=== PATIENT | female | born 1990 | race Caucasian/White ===

== ENCOUNTER 2017-10-09 05:49 | Inpatient (IN) ==
[2017-10-09] MEDS ORDERED: Naloxone 0.4 MG/ML INJ IVP PRN ×2 (06:07→07:44)
[2017-10-09] MEDS ORDERED: Metoclopramide 10 MG/2 ML VIAL IVP PRN ×2 (06:07→09:58)
[2017-10-09] MEDS ORDERED: Famotidine 20 MG/2 ML VIAL IVP PRN (06:07)
[2017-10-09] MEDS ORDERED: Ringers Solution, Lactated 1,000 ML IVC ONE (06:09)
[2017-10-09] MEDS ORDERED: Ringers Solution, Lactated 1,000 ML IVC SCH ×2 (06:15→10:00)
[2017-10-09 06:25] LABS: Basophils % 0.3 %; Eosinophils # 0.2 K/mcL (0.0-0.6); Eosinophils % 1.1 %; Hematocrit 39.1 % (35.3-44.9); Hemoglobin 13.2 g/dL (11.5-15.4); Immature Granulocytes % 0.7 % (0-4); Lymphocytes # 2.2 K/mcL (0.6-4.6); Lymphocytes % 16.6 %; Mean Corpuscular HGB Conc 33.8 g/dL (31.6-35.5); Mean Corpuscular Hemoglobin 30.8 pg (28.0-33.3); Mean Corpuscular Volume 91.4 fL (83.0-100.0); Mean Platelet Volume 12.4 fL (9.4-12.4); Monocytes # 0.6 K/mcL (0.0-1.3); Monocytes % 4.6 %; Neutrophils # 10.3 K/mcL (1.6-8.9); Platelet Count 143 K/mcL (140-400); Red Blood Count 4.28 M/mcL (3.82-4.97); Red Cell Distribution Width 13.9 % (11.5-14.5); Segmented Neutrophils % 76.7 %
--- NOTE | 2017-10-09 06:34 | OB/GYN History & Physical ---
Date of Encounter: 10/09/17 Time of Encounter: 06:30 Assessment and Plan (1) with 39 completed weeks gestation Current visit: Yes Status: Acute (2) Previous section complicating Current visit: Yes Status: Acute Patient will be scheduled for repeat low transverse uterine section with bilateral partial salpingectomy by Dr. Chavez (3) Intrauterine growth restriction (IUGR) affecting care of mother, third trimester, single gestation Current visit: Yes Status: Acute (4) Family planning advice Current visit: Yes Status: Acute History of Present Illness Chief complaint: Labor evaluation HPI: Ms. Hernández is a 26 year old female at 39 weeks +3 days presents to labor and delivery for repeat with bilateral tubal ligation. She follows Dr. Chavez for care. Patient has a history 2 previous sections and does not want to have any more babies. Patient's has been complicated by intrauterine growth restriction. She has signed tubal papers. The risks and benefit of tubal ligation was explained to patient with a failure rate of 5-8 per thousand with increased risk of ectopic if was to occur. She denies headaches, vision disturbances, chest pain, SOB, f/c/n/v, dysuria. Blood Type: O+ GBS: negative Hep B: Nonreactive HIV Ig: Nonreactive T Pallidum: negative Rubella IgG: Positive Varizella IgG: Positive Past Med Surg Social Fam HX - Past Medical History Medical history: no medical history Psychiatric history: no psych history - Past Surgical History Surgical History: other - Social History Smoking Status: Current every day smoker Packs per day: 1 pack a day Smokeless Tobacco Status: No Alcohol use: none Drug use: none - Family History Mother History Unknown: Yes Obstetrical History - Pregnancies : 3 Para: 2 Medications and Allergies Vit #108/Iron/FA [ One Tablet] 1 tab PO DAILY 10/09/17 [History ] 3 Allergy/AdvReac Type Severity Reaction Status Date / Time No Known Allergies Allergy Verified 10/09/17 06:06 Review of System OB - Constitutional Constitutional ROS IM: as per HPI - Nose, mouth, and throat Nose, mouth and throat: as per HPI - Cardiovascular Cardiovascular: as per HPI - Respiratory Respiratory: as per HPI - Genitourinary Genitourinary: no dysuria, no vaginal discharge Exam - Constitutional Constitutional: well developed, well nourished, no acute distress, average body habitus - HEENT HEENT: Normocephaly, Mucus Membranes Moist - Neck Neck exam: full ROM - Lungs Respiratory exam: CTAB - Cardiovascular Cardiovascular exam: RRR, +S1, +S2 - Abdomen Abdomen: Present: bowel sounds normal - Extremities Deep Tendon Reflex Grade: 2+ Normal - Uterus Uterus exam: Present: normal size, normal contour Results Result Diagrams: 10/09/17 06:19 All other labs normal.
[2017-10-09 06:41] LABS: Amphetamine Screen,Urine Negative ng/mL (Cutoff=1000); Barbiturate Screen,Urine Negative ng/mL (Cutoff=200); Benzodiazepines Screen,Urine Negative ng/mL (Cutoff=200); Cannabinoid Screen,Urine Negative ng/mL (Cutoff = 50); Cocaine Screen,Urine Negative ng/mL (Cutoff= 300); Opiate Screen,Urine Negative ng/mL (Cutoff=300); Phencyclidine Screen,Urine Negative ng/mL (Cutoff=25)
--- NOTE | 2017-10-09 07:24 | Anesthesia Evaluation PreOp ---
Date of Encounter: 10/09/17 Time of Encounter: 07:22 - Past History Planned Operation: scheduled csection, spinal Cardiac History: Denies any Significant Hx Pulmonary History: Smoker (1ppd/10yrs) [employer] History: Denies Any Significant HX Other Medical History: Denies Any Significant HX Anesthesia History: No Prior Anesthetic Complications, Past Anesthesia ( previous csections x 2) : Yes Alcohol Use: none Drug use: none Medications and Allergies Vit #108/Iron/FA [ One Tablet] 1 tab PO DAILY 10/09/17 [History ] 3 Allergy/AdvReac Type Severity Reaction Status Date / Time No Known Allergies Allergy Verified 10/09/17 06:06 - Meds/Allergy Pre-op Review Medications Reviewed: Yes Allergies Reviewed: Yes Beta Blockers on Current Med List: No Anesthesia Results - Labs 10/09/17 06:19 Anesthesia Exam BP 131/82 P 90 R 16 T 97.9 Height: 5'3" Weight: 84.5kg NPO (# of Hours): 9 Pain Scale: 0 Pain Scale Used: Numeric (1 - 10) - HEENT Pupil (Motor): Pupils equal Mallampati: II Teeth: Poor dentition (chipped teeth throughout) - [employer] LOC: Oriented [employer] Motor: Normal RUE, Normal LUE, Normal RLE, Normal LLE, Normal Face [employer] Sensory: Normal: RUE, LUE, RLE, LLE, Face - Cardiac Rhythm: Regular Murmur: None JVD: No Carotid Bruit: No - Pulmonary Breath Sounds: bilateral Clear Respiratory Effort: Symmetrical Anesthesia Assess/Plan ASA Score: 2 Modified [place] Scale for Level of Consciousness: Cooperative, oriented, and tranquil Anesthetic Plan: Regional Autologous Blood: No Monitoring Plan: Standard Monitors Recovery Plan: PACU
[2017-10-09] MEDS ORDERED: Morphine Sulfate/PF 5mg/10mL Vial ONE (07:42)
[2017-10-09] MEDS ORDERED: Ondansetron 4 MG/2 ML VIAL IVP ONE (07:44)
[2017-10-09] MEDS ORDERED: *HR* Meperidine 25 MG/ML SYRINGE IVP PRN (07:44)
[2017-10-09] MEDS ORDERED: *HR* OxyCODONE/APAP 5/325 TABLET PO PRN (07:44)
[2017-10-09] MEDS ORDERED: *HR* Promethazine 25 MG/ML VIAL IVP PRN (07:44)
[2017-10-09] MEDS ORDERED: MORPHINE SUL Oral CONC 10 MG/0.5 ML ORAL.SYG SL PRN (07:44)
[2017-10-09] MEDS ORDERED: *HR* Phenylephrine 10 MG/ML VIAL ONE (08:29)
[2017-10-09] MEDS ORDERED: Dexamethasone 4 MG/ML VIAL ONE (08:30)
[2017-10-09] MEDS ORDERED: Ondansetron 4 MG/2 ML VIAL ONE (08:30)
[2017-10-09] MEDS ORDERED: EPHEDrine 50 MG/ML VIAL ONE (08:31)
--- NOTE | 2017-10-09 08:40 | Anesthesia Procedures ---
Date of Encounter: 10/09/17 Time of Encounter: 08:17 Procedures: Anesthesia - Epidural/Spinal Patient ID/Chart reviewed: Yes Patient examined: Yes OB Eval: Gestational age: 39 OB Eval: : 3 OB Eval: Hx Para: 2 OB Eval: Contractions: Non-stressed pattern Consent Obtained: Yes Supplemental Oxygen: None/Room Air Site Prep: Aseptic Technique, Sterile prep and drape, Povidone-Iodine 1% Patient position: upright Local Anesthetic: Lidocaine 1% Amount of Local Anesthetic used: 3 Interspace Used: L3-L4 Loss of Resistance (KUMAR): No Blood: No CSF: Yes Paresthesia: No Spinal Needle Gauge: 25 Spinal Dose: Bupivicaine 0.75% 1.6ml morph 250mcg Procedure: Intrathecal dose administered 1st pass in upright position without any immediate noted complications. VSS throughout. Supine for csection procedure. Vitals + FHT's: See anesthesia record
[2017-10-09] MEDS ORDERED: *HR* Oxytocin 10 UNIT/ML VIAL IM ONE (08:58)
--- NOTE | 2017-10-09 09:49 | OB/GYN Procedure Note ---
Section - Date of procedure: 10/09/17 Preop diagnosis: desires repeat , desires sterilization Post-op diagnosis: same Procedure: repeat low transverse, bilateral tubal ligation Surgeon: Irene Chavez Estimated blood loss (cc): 500 Was there an retail event and sales assistant present: Yes Parachute/Combatant Diver Officer: Padma Haney Anesthesia Type: Spinal section complications: none Disposition: L&D Recovery Room Specimens: Placenta, Cord blood, Right tube segment, Left tube segment - Narrative Narrative: Problem list: 1. h/o 2 repeat cesareans section 2. IUGR 3. Smoker 4. 39+3 weeks Indications: 26 y/o presents to L&D for a scheduled . She has a history of 2 prior c-sections. course was complicated by IUGR. Procedure: Patient was brought to the operating room with satisfactory spinal anesthesia. The abdomen was prepped and draped in a sterile fashion. A Pfannenstiel incision was made and carried sharply down to the level of fascia. The fascia was incised transversely. The fascia was dissected away from the underlying rectus muscles. With sharp and blunt dissection, the rectus muscles were divided in the midline. The peritoneum was entered bluntly. A transverse incision was made across the bladder peritoneum. The bladder was dissected away from the underlying lower uterine segment. Bladder retractor was placed to protect the bladder. The lower uterine segment was entered sharply with a scalpel. Incision was manually extended. Amniotic sac was ruptured and clear fluid was encountered. The infant's head was pulled up and delivered easily as were the shoulders and body. The mouth and oropharynx were suctioned. The cord was clamped and cut. The infant was passed off to the waiting nurse in satisfactory condition. APGARS 8/9, weight 2595g(5lbs 12oz). Placenta was extracted completely and found to be intact. Uterus was explored and found to be empty. Uterus was delivered through the abdominal incision and massaged vigorously. Intravenous Pitocin was administered. The margins of the uterine incision were closed primarily with a running locking stitch of 0 Vicryl with adequate hemostasis. Secondary running locking stitch was placed for extra strength to the wound. At this point, attention was diverted to the patient's tubes, a [place] clamp grasped the isthmic portion of each tube and approximately 1-cm knuckle on either side was tied off with two lengths of 0 plain catgut. Intervening knuckle was excised and passed off the field. The proximal end of the tubal mucosa was cauterized. Cul-de-sac and gutters were suctioned vigorously. The uterus was returned to its proper anatomic position in the abdomen. The fascia was closed with a simple running stitch of 0 vicryl. 3-0 vicryl was used to close the subcutaneous tissue. The skin was closed with running subcuticular of 4-0 vicryl. Uterus was expressed of its contents. Patient was brought to the recovery room in satisfactory condition. There were no complications. There was 500 cc of blood loss. All sponge, needle, and instrument counts were reported to be correct.
[2017-10-09] MEDS ORDERED: Simethicone 80 MG TAB.CHEW PO PRN (09:58)
[2017-10-09] MEDS ORDERED: Sennosides 8.6 MG TABLET PO PRN (09:58)
[2017-10-09] MEDS ORDERED: Ondansetron 4 MG/2 ML VIAL IVP PRN (09:58)
[2017-10-09] MEDS ORDERED: Oxytocin 20 units/ LR 1000 mL 20 UNIT/1,000 ML BAG IVC SCH (10:00)
--- NOTE | 2017-10-09 11:36 | Anesthesia Evaluation Post Op ---
Date of Encounter: 10/09/17 Time of Encounter: 11:34 - Vital Signs Vital Signs: BP 106/56 P 73 R 16 T 98.2 - Lungs Lungs: Clear Ascult./Percussion - Airway Airway: Non-obstructed - Cardiovascular Regular Rate - Mental Status Mental Status: Alert & Oriented, Answers Appropriately - Pain Pain Scale: 0 Pain Scale used: Numeric (1 - 10) - Nausea Vomiting Nausea Vomiting: Not Present - Hydration Hydration: NPO, Galan catheter Notes: 10/09/17 11:35 spinal level decreasing, pt able to move feet. No complaints of discomfort - Discharge PostOp Status: Transfer Patient to floor
[2017-10-09] MEDS: Ibuprofen 600 MG TABLET PO PRN (17:02)
[2017-10-10] MEDS: Ibuprofen 600 MG TABLET PO PRN (04:08)
[2017-10-10 04:49] LABS: Basophils % 0.2 %; Eosinophils # 0.1 K/mcL (0.0-0.6); Eosinophils % 0.9 %; Hematocrit 32.1 % (35.3-44.9); Hemoglobin 10.7 g/dL (11.5-15.4); Immature Granulocytes % 0.5 % (0-4); Lymphocytes # 2.6 K/mcL (0.6-4.6); Lymphocytes % 20.1 %; Mean Corpuscular HGB Conc 33.3 g/dL (31.6-35.5); Mean Corpuscular Hemoglobin 30.7 pg (28.0-33.3); Mean Corpuscular Volume 92.2 fL (83.0-100.0); Mean Platelet Volume 12.6 fL (9.4-12.4); Monocytes # 0.6 K/mcL (0.0-1.3); Monocytes % 4.8 %; Neutrophils # 9.5 K/mcL (1.6-8.9); Platelet Count 136 K/mcL (140-400); Red Blood Count 3.48 M/mcL (3.82-4.97); Red Cell Distribution Width 13.9 % (11.5-14.5); Segmented Neutrophils % 73.5 %
[2017-10-10] MEDS: Prenatal Vit/FA 1 EACH TABLET PO SCH (07:54)
--- NOTE | 2017-10-10 09:53 | OB/GYN Progress Note ---
Date of Encounter: 10/10/17 Time of Encounter: 09:51 - Assessment and Plan (1) Status post delivery Current Visit: Yes Status: Acute Stable POD #1 Continue current management plan Anticipate discharge tomorrow Subjective - Subjective Interval history: Pain well-managed on by mouth pain medication, tolerating by mouth diet, voiding without difficulty, and flatus Patient reports: appetite normal, voiding normally, pain well controlled, ambulating normally [place]: doing well Objective - Vital Signs Latest vital signs: Vital Signs Temp Pulse Resp BP Pulse Ox 10/10/17 07:45 98.1 F 86 16 108/72 97 10/10/17 04:05 97.7 F 73 16 105/68 99 10/10/17 00:00 97.9 F 77 16 114/75 98 10/09/17 19:30 99.1 F 62 14 126/64 97 10/09/17 16:32 99.4 F 60 16 139/70 100 10/09/17 14:45 97.6 F 59 16 129/78 100 10/09/17 14:06 97.8 F 69 18 116/68 100 10/09/17 13:15 97.8 F 72 16 121/74 100 10/09/17 12:15 97.6 F 69 14 121/76 97 Intake and Output 10/09/17 10/10/17 10/10/17 23:59 07:59 15:59 Intake Total 360 / 360 720 / 720 Output Total 850 / 850 1200 / 1200 Balance -490 / -490 -480 / -480 Intake: Oral 360 / 360 720 / 720 Output: Urine 400 / 400 Catheter 850 / 850 800 / 800 Other: Weight 79.379 kg Patient Weight 10/10/17 23:59 Weight 79.379 kg - Exam Lungs: bilateral: normal Chest: Normal S1, Normal S2 Extremities: Present: normal Abdomen: Present: normal appearance, soft Incision: Present: dressed (No drainage) Uterus: Present: normal, firm Comments: Fundus firm at umbilicus - Labs Labs: Laboratory Results - last 24 hr 10/10/17 04:20 WBC 12.9 H RBC 3.48 L Hgb 10.7 L D Hct 32.1 L MCV 92.2 MCH 30.7 MCHC 33.3 RDW 13.9 Plt Count 136 L MPV 12.6 H Immature Gran % 0.5 Seg Neutrophils % 73.5 Lymphocytes % 20.1 Monocytes % 4.8 Eosinophils % 0.9 Basophils % 0.2 Neutrophils # 9.5 H Lymphocytes # 2.6 Monocytes # 0.6 Eosinophils # 0.1 Basophils # 0.0
[2017-10-10] MEDS: *HR* OxyCODONE/APAP 5/325 TABLET PO PRN ×3 (11:41→21:09)
[2017-10-11] MEDS: *HR* OxyCODONE/APAP 5/325 TABLET PO PRN (07:12)
--- NOTE | 2017-10-11 08:53 | Discharge Summary ---
Date of Encounter: 10/11/17 Time of Encounter: 08:49 - Discharge Diagnosis (1) anemia Priority: Secondary Status: Acute Comments: Continue iron daily (2) with 39 completed weeks gestation Priority: Secondary Status: Acute (3) Status post delivery Priority: Primary Status: Acute Comments: POD no. 2 Pt reports pain well controlled with PO pain meds Tolerating regular diet Voiding independently Passing flatus and has had BM NITZA dressing in place Lochia light Ready for discharge to guest today - Discharge Medications Prescriptions: OxyCODONE/APAP 5/325 [Percocet 5/325 MG] 1 each PO Q4HR PRN 5 Days #30 tablet PRN Reason: Moderate pain 4-6 Ibuprofen [Motrin] 600 mg PO Q6HR PRN #30 tablet PRN Reason: Cramping Docusate [Colace] 100 mg PO BID #60 capsule Ferrous Sulfate 325 mg PO DAILY #30 tablet Home Medications: Vit #108/Iron/FA [ One Tablet] 1 tab PO DAILY 10/09/17 [History ] Docusate [Colace] 100 mg PO BID #60 capsule 10/11/17 [Rx] Ferrous Sulfate 325 mg PO DAILY #30 tablet 10/11/17 [Rx] Ibuprofen [Motrin] 600 mg PO Q6HR PRN #30 tablet 10/11/17 [Rx] OxyCODONE/APAP 5/325 [Percocet 5/325 MG] 1 each PO Q4HR PRN 5 Days #30 tablet [Rx] Simethicone [Gas-X] 80 mg PO TID PRN tab.chew 10/11/17 [Rx] Allergies/Adverse Reactions: 3 Allergy/AdvReac Type Severity Reaction Status Date / Time No Known Allergies Allergy Verified 10/09/17 06:06 Data Procedures and tests throughout hospitalization: Laboratory Tests 10/09/17 10/09/17 10/10/17 06:19 06:26 04:20 WBC 13.4 H 12.9 H RBC 4.28 3.48 L Hgb 13.2 10.7 L D Hct 39.1 32.1 L MCV 91.4 92.2 MCH 30.8 30.7 MCHC 33.8 33.3 RDW 13.9 13.9 Plt Count 143 136 L MPV 12.4 12.6 H Immature Gran % 0.7 0.5 Seg Neutrophils % 76.7 73.5 Lymphocytes % 16.6 20.1 Monocytes % 4.6 4.8 Eosinophils % 1.1 0.9 Basophils % 0.3 0.2 Neutrophils # 10.3 H 9.5 H Lymphocytes # 2.2 2.6 Monocytes # 0.6 0.6 Eosinophils # 0.2 0.1 Basophils # 0.0 0.0 Urine Opiates Screen Negative Ur Barbiturates Screen Negative Ur Phencyclidine Scrn Negative Ur Amphetamines Screen Negative U Benzodiazepines Scrn Negative Urine Cocaine Screen Negative U Marijuana (THC) Screen Negative Date of admission: 10/09/17 05:49 Primary care physician: PCP NONE Consults: 10/09/17 07:23 Consult to Bag [facility] (W&C) [CONS] Stat Reason For Exam: Reason for SW Consult: no custody of other child d/t child endangerment Discharging clinician: Reema Champion Anticipated date of discharge: 10/11/17 - Patient Status Disposition: Home, Self-Care Condition: Good Functional capacity at discharge: independent ambulation Overall status at discharge: patient is progressing back to baseline - Discharge Instructions Follow Up With: NONE,PCP [Primary Care Provider] - Troy Ramires [Family Provider] - Irene Chavez MD [Partnered Physician] - - Diet and Activity Activity: increase activity as tolerated Diet: regular diet Hospital Course Reason for admission: section, IUP at term Delivery: section Episiotomy: none Laceration: none Other procedures: tubal ligation complications: none Discharge diagnosis: IUP at term delivered [place] baby: female Time Attestation: Total time spent providing and/or coordinating discharge services: Time Spent: Less than 30 minutes - VTE Documentation of Mechanical Device: Intermittent pneumatic compression device Exam - Constitutional Vitals: Temp Pulse Resp BP Pulse Ox 97.8 F 88 16 117/75 98 10/10/17 19:45 10/10/17 19:45 10/10/17 19:45 10/10/17 19:45 10/10/17 19:45 General appearance IM: A&O X 3 - Respiratory Respiratory exam: Present: CTAB - Cardiovascular Cardiovascular exam IM: Present: RRR, +S1, +S2 - GI/Abdominal GI/Abdominal exam IM: normal bowel sounds, no peritoneal signs Incision: normal, dressed - Rectal Rectal exam: deferred - Uterine Tone: Firm Uterus Position: 2 Fingers Below Umbilicus, Midline - Extremities Exam Extremities exam IM: Present: pedal edema, radial pulses palpable and symmetrical - Neurological Exam Neurological exam: alert, oriented X3 - Psychiatric Additional comments: Pt feeling well today. No history of PPD. We discussed s/sx of when to call office should she have any concerns.
[2017-10-11] MEDS: Prenatal Vit/FA 1 EACH TABLET PO SCH (09:00)
[2017-10-11 09:41] VITALS: BP 123/77
== END 2017-10-11 10:00 | disposition home or self-care (01) | DRG 540 ==
LOC: 1NENULAB 05:49 → 1NENUOBS 12:26
PROVIDERS: ADMIT Student in an Organized Health Care Education/Training Program; ATTEND Student in an Organized Health Care Education/Training Program